=== PATIENT | female | born 1955 | race African-American/Black ===

== ENCOUNTER 2019-09-07 11:43 | IRF | payer BC, SELFPAY ==
--- NOTE | ~2019-09-07 | US_ITS ---
EXAMINATION: US venous doppler LE EXAM DATE: 09/10/2019 09:35 INDICATION: Right leg swelling. TECHNIQUE: Multiple grayscale, color flow and Doppler images of the right lower extremity deep venous system obtained and reviewed. There is no prior study for comparison. FINDINGS: RIGHT SIDE Common femoral: -------- Normal. Profunda femoral: ------- Normal. Femoral: Normal. Popliteal: Normal. Posterior tibial: --------- Normal. Peroneal: Paired, 1 thrombosed proximally. Gastrocnemius: Not visualized. Soleus: Not visualized. Greater saphenous: ----- Normal. Lesser saphenous: ------ Not visualized. IMPRESSION: 1. Positive for right peroneal DVT. I discussed positive DVT results with [facility] staff Ellie at 09/10/2019 09:38 MOTEL MANAGER. Reviewed, dictated and finalized at location B. L MANAGER IMPRESSION: 1. Positive for right peroneal DVT. I discussed positive DVT results with [facility] staff Ellie at 09/10/2019 09:38 MOTEL MANAGER .
[2019-09-07 11:42] VITALS: BP 150/72; PULSE 62; RESP 18; TEMP 36.6; O2SAT 99
--- NOTE | 2019-09-07 11:45 | ADMGEN ---
This patient, Kym Robb, was admitted to [facility] Room 219-02. Patient/family oriented to hospital policies and general routines including ID bracelet, bed and alarms, visiting hours, pain management, procedures, bathroom and other care routines, personal items, smoking policy, room service/diet, and visiting hours. Valuables list has been completed. Information on how to activate the Rapid Response Team has been discussed. Patient/Family are encouraged to report perceived risks to care and to ask questions if they do not understand what they are told or what they should do.
[2019-09-07] MEDS: NIFEdipine 10 MG CAPSULE 20 MG PO ×2 (13:03→20:26)
[2019-09-07 14:00] VITALS: BP 152/72; PULSE 80; RESP 20; TEMP 36.2; O2SAT 100
--- NOTE | 2019-09-07 14:44 | P.HPREH_ITS ---
H&P: HPI History of Present Illness Chief complaint: CVA Narrative: Kym Rbob is a 64 year old female [facility] Family History Family History Sibling Cerebrovascular accident Chronic obstructive pulmonary disease Hypertension Mother Cerebrovascular accident Diabetes mellitus Hypertension Sibling Chronic obstructive pulmonary disease Hypertension Social History Social History Alcohol intake: never Substance use: never Substance use type: does not use Spiritual care concerns: No Agree to blood products: Yes Meds Home Medications and Allergies Home Medications Medication Instructions Recorded Confirmed Type acetaminophen 650 mg PO Q6H PRN 09/07/19 09/07/19 History aspirin 81 mg PO DAILY 09/07/19 09/07/19 History atorvastatin 40 mg PO HS 09/07/19 09/07/19 History clopidogrel 75 mg PO DAILY 09/07/19 09/07/19 History hydrochlorothiazide 25 mg PO DAILY 09/07/19 09/07/19 History lisinopril 40 mg PO DAILY 09/07/19 09/07/19 History metoprolol succinate 100 mg PO DAILY 09/07/19 09/07/19 History nifedipine 20 mg PO Q8H 09/07/19 09/07/19 History polyethylene glycol 3350 17 g PO BID PRN 09/07/19 09/07/19 History Allergies Allergy/AdvReac Type Severity Reaction Status Date / Time No Known Allergies Allergy Verified 09/07/19 11:57 Vital Signs Vital Signs - 24 hr 09/07/19 11:42 09/07/19 14:00 Temperature 36.6 C 36.2 C L Pulse Rate 62 80 Respiratory Rate 18 20 Blood Pressure 150/72 H 152/72 H Pulse Oximetry 99 100
[2019-09-07 18:55] VITALS: BMI 38.7
[2019-09-07] MEDS: ATORVASTATIN 40 MG TABLET PO (20:26)
[2019-09-07 22:00] VITALS: BP 157/79; PULSE 58; RESP 18; TEMP 36.2; O2SAT 100
[2019-09-08 05:56] LABS: Basophils Percent Auto 0.4 % (0.2-1.2); Eosinophils Absolute Auto 0.3 K/mm3 (0-0.3); Eosinophils Percent Auto 4.5 % (0-4.4); Hematocrit 41.2 % (37.0-47.0); Hemoglobin 12.6 g/dL (12.0-15.0); Immature Granulocyte Absolute 0.02 K/mm3 (0.00-0.031); Immature Granulocyte Percent A 0.4 % (0-0.5); Lymphocytes Absolute Auto 1.69 K/mm3 (0.9-3.2); Lymphocytes Percent Auto 30.7 % (18.3-44.2); Mean Corpuscular HGB Conc 30.6 g/dl (32-36); Mean Corpuscular Hemoglobin 28.1 pg (26-34); Mean Corpuscular Volume 91.8 fl (80-100); Mean Platelet Volume 11.3 fl (7.4-10.4); Monocytes Absolute Auto 0.7 K/mm3 (0.1-0.6); Monocytes Percent Auto 12.5 % (2.6-8.5); Neutrophils Absolute Auto 2.8 K/mm3 (1.3-6.7); Neutrophils Percent Auto 51.5 % (45.5-73.1); Platelet Count Result 241 k/mm3 (150-375); Red Blood Count 4.49 M/mm3 (4.2-5.4); Red Cell Distribution Width 12.4 % (11.5-14.5); White Blood Count 5.5 K/mm3 (4.5-10.0)
[2019-09-08 06:00] VITALS: BP 157/66; PULSE 81; RESP 20; TEMP 36.2; O2SAT 98
[2019-09-08] MEDS: NIFEdipine 10 MG CAPSULE 20 MG PO ×3 (06:05→19:36)
[2019-09-08 06:10] LABS: Blood Urea Nitrogen 25 mg/dL (7-17); Calcium 9.6 mg/dL (8.4-10.2); Carbon Dioxide 26 mmol/L (22-30); Chloride 104 mmol/L (98-107); Estimated CRCL calculation 50 ml/min; Estimated Glomerular Filt Rate > 60; Glucose 100 mg/dL (65-105); Potassium 4.2 mmol/L (3.4-5.0); Sodium 141 mmol/L (137-145)
[2019-09-08] MEDS: lisinopriL 20 MG TABLET 40 MG PO (09:34)
[2019-09-08 09:35] VITALS: PULSE 68
[2019-09-08] MEDS: METOPROLOL SUCCINATE EXT REL 100 MG TABCR PO (09:35)
[2019-09-08] MEDS: ASPIRIN 81 MG CHEWABLE TABLET PO (09:35)
[2019-09-08] MEDS: hydroCHLOROthiazide 25 MG TABLET PO (09:35)
[2019-09-08] MEDS: CLOPIDOGREL BISULFATE 75 MG TABLET PO (09:35)
[2019-09-08 14:00] VITALS: BP 153/65; PULSE 58; RESP 16; TEMP 37.1; O2SAT 100
[2019-09-08] MEDS: ATORVASTATIN 40 MG TABLET PO (19:36)
[2019-09-08 21:57] VITALS: BP 148/65; PULSE 54; RESP 20; TEMP 36.3; O2SAT 100
[2019-09-09] MEDS: NIFEdipine 10 MG CAPSULE 20 MG PO ×3 (05:43→21:05)
[2019-09-09 06:00] VITALS: BP 142/66; PULSE 81; RESP 20; TEMP 36.9; O2SAT 98
[2019-09-09] MEDS: ASPIRIN 81 MG CHEWABLE TABLET PO (08:57)
[2019-09-09 08:58] VITALS: PULSE 81
[2019-09-09] MEDS: CLOPIDOGREL BISULFATE 75 MG TABLET PO (08:58)
[2019-09-09] MEDS: hydroCHLOROthiazide 25 MG TABLET PO (08:58)
[2019-09-09] MEDS: lisinopriL 20 MG TABLET 40 MG PO (08:58)
[2019-09-09] MEDS: METOPROLOL SUCCINATE EXT REL 100 MG TABCR PO (08:58)
[2019-09-09 14:00] VITALS: BP 140/61; PULSE 62; RESP 16; TEMP 36.8; O2SAT 99
[2019-09-09] MEDS: ATORVASTATIN 40 MG TABLET PO (21:06)
[2019-09-09 21:18] VITALS: BP 173/64; PULSE 62; RESP 20; TEMP 36.4; O2SAT 99
[2019-09-10 06:00] VITALS: BP 143/66; PULSE 68; RESP 16; TEMP 36.4; O2SAT 98
[2019-09-10] MEDS: NIFEdipine 10 MG CAPSULE 20 MG PO ×3 (06:12→21:03)
--- NOTE | 2019-09-10 06:20 | REHAB_ITS ---
DATE OF SERVICE: 09/07/2019 This 64 years old has been admitted to the hospital acute rehab with the primary rehab impairment category of 01/stroke and the etiological diagnosis of acute infarct involving the medial left frontal and parietal lobes. The patient was examined [id number] on 09/07/2019 at 2:00 p.m. HISTORY AND PHYSICAL EXAM: This 64 years old right-handed female with past medical history of hypertension, presented to [facility] on 09/03/2019, subsequent to fall the day before, though she was unable to remember falling; however, she denied loss of consciousness, she reported decreased sensation in the right lower extremity since the fall. She also reported not taking her home antihypertensive medication for the last couple of months. Initial CT scan of the head revealed no acute intracranial bleed. Chest x-ray was negative for any acute pulmonary process. Bilateral hip and pelvic x-rays were negative for bony injuries. Blood pressure on presentation was in 270 systolic. She was given IV labetalol and hydralazine and her home medications were restarted. Neurology service was consulted. An MRI of the brain and carotid duplex studies were ordered. Brain MRI demonstrated multiple areas of acute infarct in the medial left frontal and parietal lobes including the primary motor cortex and tiny foci of the old hemorrhages. Carotid duplex scan revealed [id number] plaque and no ulceration. Physical examination revealed to have right-sided weakness, decreased gross motor control, decreased safety awareness, and impaired balance. She was started on atorvastatin, aspirin, and Plavix. Her home blood pressure medication included lisinopril, hydrochlorothiazide, and metoprolol. They were continued and adjusted and a new medication that is Procardia was added. She was discharged to rehab on subcutaneous heparin for DVT prophylaxis. Therapy was initiated at the acute care facility and the patient was transferred to us from [facility] on 09/07/2019. The patient has had no major surgery in the last 100 days prior to the admission. She has had falls in the last year. She has had no fall with injury in the last year. PAST MEDICAL HISTORY: Hypertension. PAST SURGICAL HISTORY: None. SOCIAL HISTORY: The patient lives with her in a one-level home with 4 steps to enter. No hand rails. She was completely independent prior and working full-time as a banquet chef. She was very busy and active prior. Her is employed as well. She had a fall as the reason for this admission. She has had no major surgery in the past 100 days. FAMILY HISTORY: Mother had stroke, hypertension, and sister also has hypertension. PRIOR LEVEL OF FUNCTION: The patient has been independent in eating, oral care, toileting, bathing and shower, upper body dressing, lower body care, footwear, and rolling left and right, sit to lying, lying to sitting, sit to stand, bed to chair transfer, toilet transfer, the patient was previously ambulating independently with no device, she was able to complete 4 stairs independently. CURRENT LEVEL OF FUNCTION: Eating is independent. Oral care is partial moderate assistance. Toileting hygiene is partial moderate assistance. Shower bathing is partial moderate assistance. Upper body supervision or touching assistance. Lower body is partial moderate assistance. Footwear is partial moderate assistance. Rolling left and right is setup or cleanup assistance. Sit to lying is setup or cleanup assistance. Lying to sitting is setup or cleanup assistance. Sit to stand partial moderate assistance. Nbr-qt-[id number] transfer partial moderate assistance. Toilet transfer, partial moderate assistance. The patient has walked 88 feet with partial moderate assistance. Wheelch
[2019-09-10] MEDS: CLOPIDOGREL BISULFATE 75 MG TABLET PO (08:46)
[2019-09-10] MEDS: hydroCHLOROthiazide 25 MG TABLET PO (08:46)
[2019-09-10] MEDS: ASPIRIN 81 MG CHEWABLE TABLET PO (08:46)
[2019-09-10] MEDS: lisinopriL 20 MG TABLET 40 MG PO (08:46)
[2019-09-10 08:47] VITALS: PULSE 68
[2019-09-10] MEDS: METOPROLOL SUCCINATE EXT REL 100 MG TABCR PO (08:47)
--- NOTE | 2019-09-10 10:01 | RPD ---
INDIVIDUALIZED PLAN OF CARE FOR Kym Robb Brief Synthesis of Pre-Admission Screen, Post-Admission Evaluation and Therapy Evaluations: The patient presents to rehab with acute infarct medial left frontal/parietal lobe. Comorbidities include hypertensive emergency, right-sided weakness, hyperlipidemia, s/p ground level fall, gait instability. The patient requires physician services for neurology services, medical oversight, and coordination of care. The patient needs physician monitoring and treatment of uncontrolled hypertension, hypotension, monitoring for adverse reactions to new medications, and monitoring for infection. The patient requires nursing services for frequent neuro checks, anticoagulation therapy, medication management and education, pressure relief and skin care management, monitoring of labs, and fall/safety precautions. Deficits include:ADLs, Balance, Endurance, Mobility, ROM, Safety, Strength, Transfers Rubber Washer/Case Management for: Discharge Planning and Patient/Family Counseling Physical Therapy: 5 days per week for 90 minutes. Treatments may include: Therapeutic Exercise, Gait Training, Neuromuscular Re-education, Transfer Training, Community Reintegration, Bed Mobility, Patient/Family Education, Wheelchair Mobility Group Therapy/Concurrent Therapy Rationales: -Improve attention span during functional activities in a distracted environment. -Enhance problem solving and/or adequate judgment skills during functional activities in a distracted environment. -Promote increased safety awareness in a distracted environment to reduce fall risk with functional tasks, transfers, and ambulation to allow a more safe, self-sufficient return to the home environment. -Improve dynamic balance skills to promote safety and independence with functional activities in a distracted environment for maximum gain. Occupational Therapy: 5 days per week for 90 minutes. Treatments may include: Therapeutic Exercise, Therapeutic Activity, Cognitive Training, Self-Care Transfer Training, Community Reintegration, Home Management, Patient/Family Education, Wheelchair Mobility Training, Energy Conservation Training Group Therapy/Concurrent Therapy Rationales: -Allow therapist to observe and teach generalization and carry-over of skills learned in individual therapy. -Enhance problem solving and sequencing skills during therapeutic activities in a distracted environment. -Promote increased safety awareness in a realistic setting to reduce fall risk with functional tasks due to visual and verbal distractions. -Increase functional level with ADLs, ADL transfers and use of adaptive equipment through therapeutic activities with others while promoting safety to allow a more safe, self-sufficient return home. Medical Prognosis: Good Anticipated Length of Stay: 10 days Rehab Goals: Eating Goal: 06-Independent Oral Hygiene Goal: 06-Independent Toileting Hygiene Goal: 06-Independent Shower/Bathe Self Goal: 06-Independent Upper Body Dressing Goal: 06-Independent Lower Body Dressing Goal: 06-Independent Putting On/Taking Off Footwear Goal: 06-Independent Rolling Left and Right Goal: 06-Independent Sit to Lying Goal: 06-Independent Lying to Sitting on Side of Bed Goal: 06-Independent Sit to Stand Goal: 06-Independent Chair/Tgd-in-Xazoi Transfer Goal: 06-Independent Toilet Transfer Goal: 06-Independent Car Transfer Goal: 06-Independent Walk 10' Goal: 06-Independent Walk 50' with Two Turns Goal: 06-Independent Walk 150' Goal: 06-Independent Walk 10' on Uneven Surface Goal: 06-Independent 1 Step (Curb) Goal: 06-Independent 4 Steps Goal: 06-Independent 12 Steps Goal Score: 06-Independent Picking Up Object Goal: 06-Independent Wheel 50' with Two Turns Score: 09-Not Applicable Wheel 150' Goal: 09-Not Applicable Anticipated discharge destination: Home
--- NOTE | 2019-09-10 11:32 | WPDNEURORHBP ---
Subjective Date/time seen: 09/10/19 11:32 Review of Systems Review of Systems: All systems reviewed & are unremarkable except as noted in HPI and below Functional Status Ambulation Ability Ability to Ambulate 10 Feet: Contact Guard Ability to Ambulate 50 Feet With 2 Turns: Contact Guard Ability to Ambulate 150 Feet: Contact Guard Ambulation Assistive Devices: Cane Transfers Ability Ability to Transfer In/Out of Chair: Standby Assistance Exam Const: General: no acute distress and well developed Nutritional Appearance: average body habitus and well nourished Orientation/consciousness: oriented to person and patient oriented x3 Limitations: no limitations Eyes: General: appearance normal, both eyes and all related structures Resp: Effort & Inspection: normal respiratory effort and able to speak in complete sentences Auscultation: clear to auscultation bilaterally Cardio: Rate: regular rate Rhythm: regular rhythm GI: Auscultation: normal bowel sounds Skin: General skin exam: no rashes or lesions noted Neuro: General: patient oriented x3 and moves all extremities Cranial nerves: Yes Equal, round and reactive pupils present, Yes Bilaterally intact EOM present, Yes Nystagmus not present, Yes Normal facial strength present, Yes Midline tongue present, Yes Normal gag reflex present and Yes Ability to bilaterally elevate shoulders present Cognition (Neuro): normal cognition Gait exam (Neuro): Unable to assess gait Extrem: General: no pedal edema (right lower extremity swoolen) Psych: Appearance: grossly normal Objective Data Vital Signs Vital Signs: Vital Signs - 24 hr 09/09/19 14:00 09/09/19 21:18 09/10/19 06:00 Temperature 36.8 C 36.4 C 36.4 C L Pulse Rate 62 62 68 Respiratory Rate 16 20 16 Blood Pressure 140/61 173/64 H 143/66 H Pulse Oximetry 99 99 98 09/10/19 08:47 Temperature Pulse Rate 68 Respiratory Rate Blood Pressure Pulse Oximetry Intake/Output Intake/Output: Intake & Output 09/07/19 09/08/19 09/09/19 09/10/19 23:59 23:59 23:59 23:59 Intake Total 240 1200 1080 300 Balance 240 1200 1080 300 Meds/Results Medications: Active Medications Generic Name Dose Route Start Last Admin Trade Name Freq PRN Reason Stop Dose Admin Acetaminophen 650 mg 09/07/19 11:55 Tylenol Tablet PO Q6H PRN Pain Aspirin 81 mg 09/08/19 09:00 09/10/19 08:46 Aspirin Chewable PO 10/05/19 09:01 81 mg DAILY EDU Administration Atorvastatin Calcium 40 mg 09/07/19 21:00 09/09/19 21:06 Lipitor PO 40 mg HS EDU Administration Benzocaine 1 lozenge 09/08/19 00:49 Chloraseptic Lozenge PO PRN PRN Sore Throat Protocol Clopidogrel Bisulfate 75 mg 09/08/19 09:00 09/10/19 08:46 Plavix PO 75 mg DAILY EDU Administration Heparin Sodium (Porcine) 5,000 units 09/10/19 10:30 Heparin Sodium SUB-Q Q8HR EDU Hydrochlorothiazide 25 mg 09/08/19 09:00 09/10/19 08:46 Hydrochlorothiazide PO 25 mg DAILY EDU Administration Lisinopril 40 mg 09/08/19 09:00 09/10/19 08:46 Prinivil PO 40 mg DAILY EDU Administration Metoprolol Succinate 100 mg 09/08/19 09:00 09/10/19 08:47 Toprol Xl PO 100 mg DAILY EDU Administration Nifedipine 20 mg 09/07/19 14:00 09/10/19 06:12 Procardia PO 20 mg Q8HR EDU Administration Polyethylene Glycol 17 gm 09/07/19 11:55 Miralax PO BID PRN Constipation Radiology Results: ITS Impressions Venous Doppler Study 09/10/19 09:36 IMPRESSION: 1. Positive for right peroneal DVT. I discussed positive DVT results with [facility] staff Ellie at 09/10/2019 09:38 VARITYPIST. Progress Note: A&P Assessment and Plan (1) Stroke: Code(s): I63.9 - Cerebral infarction, unspecified Status: Acute (2) Hypotension: Code(s): I95.9 - Hypotension, unspecified Status: Acute (3) DVT (deep venous thrombosis): Code(s): I82.409 - Acute embolis
[2019-09-10] MEDS: HEPARIN SODIUM 5,000 UNITS/ML VIAL 5000 UNITS SUB-Q ×3 (11:58→21:09)
[2019-09-10 13:38] VITALS: BMI 38.7
[2019-09-10 14:00] VITALS: BP 173/65; PULSE 70; RESP 18; TEMP 36.5; O2SAT 99
--- NOTE | 2019-09-10 14:51 | PCNSR ---
On 09/10/19, the student, Ines Aceves, provided care and completed [facility] documentation on this patient. I have reviewed the student's documentation and agree with the findings.
[2019-09-10] MEDS: ATORVASTATIN 40 MG TABLET PO (21:03)
[2019-09-10 22:00] VITALS: BP 182/71; PULSE 66; RESP 20; TEMP 36.5; O2SAT 100
[2019-09-11] VITALS (7 sets, daily range): BP systolic 134–184; BP diastolic 54–77; PULSE 60–76; RESP 18–20; TEMP 36.2–36.5; O2SAT 98–100
[2019-09-11] MEDS: NIFEdipine 10 MG CAPSULE 20 MG PO ×3 (08:15→20:49)
[2019-09-11] MEDS: HEPARIN SODIUM 5,000 UNITS/ML VIAL 5000 UNITS SUB-Q ×3 (08:15→20:50)
[2019-09-11] MEDS: hydroCHLOROthiazide 25 MG TABLET PO (08:18)
[2019-09-11] MEDS: METOPROLOL SUCCINATE EXT REL 100 MG TABCR PO (08:18)
[2019-09-11] MEDS: ASPIRIN 81 MG CHEWABLE TABLET PO (08:18)
[2019-09-11] MEDS: CLOPIDOGREL BISULFATE 75 MG TABLET PO (08:18)
[2019-09-11] MEDS: lisinopriL 20 MG TABLET 40 MG PO (08:18)
--- NOTE | 2019-09-11 13:15 | WPDNEURORHBP ---
Subjective Date/time seen: 09/11/19 13:15 Interval history: this is a 64-year-old woman was on the acute rehab after having had a left hemispheric stroke with right-sided weakness with the sparing of the speech and language function she is doing well in the rehab program and does not have any specific complaints particularly there is no headache nausea vomiting chest pain shortness of breath the therapist mentioned that the patient may need an AFO because of the unstable of right leg which is much more involved from the stroke than the arm itself in fact the arm is with significantly much improved almost back to normal No headache nausea vomiting leg pain chest pain shortness of breath fever chills abdominal pain diarrhea or vomiting Review of Systems Review of Systems: All systems reviewed & are unremarkable except as noted in HPI and below Functional Status Ambulation Ability Ability to Ambulate 10 Feet: Contact Guard Ability to Ambulate 50 Feet With 2 Turns: Contact Guard Ability to Ambulate 150 Feet: Contact Guard Ambulation Assistive Devices: Cane Transfers Ability Ability to Transfer In/Out of Chair: Standby Assistance Exam Const: General: comfortable and no acute distress HENMT: General nose exam: Normal nares present Mouth: Yes moist mucous membranes Eyes: General: appearance normal, both eyes and all related structures Neck: Neck: supple and no JVD Resp: Effort & Inspection: normal respiratory effort Auscultation: clear to auscultation bilaterally Cardio: Rate: regular rate Rhythm: regular rhythm GI: GI Palp: Yes Soft to palpation Auscultation: normal bowel sounds Skin: General skin exam: normal color and no rashes or lesions noted Neuro: Other: patient is awake and alert will oriented in time place and person speech and language functions are normal cranial examination is fairly decent she does have a right-sided weakness where the right leg is much more involved than the right upper extremity overall picture is much improved Extrem: General: normal to inspection Objective Data Vital Signs Vital Signs: Vital Signs - 24 hr 09/10/19 14:00 09/10/19 22:00 09/11/19 06:00 Temperature 36.5 C 36.5 C 36.5 C Pulse Rate 70 66 76 Respiratory Rate 18 20 20 Blood Pressure 173/65 H 182/71 H 146/54 H Pulse Oximetry 99 100 98 09/11/19 08:18 09/11/19 08:21 09/11/19 10:41 Temperature Pulse Rate 68 68 60 Respiratory Rate Blood Pressure 184/71 H 142/70 H Pulse Oximetry Intake/Output Intake/Output: Intake & Output 09/08/19 09/09/19 09/10/19 09/11/19 23:59 23:59 23:59 23:59 Intake Total 1200 1080 860 240 Balance 1200 1080 860 240 Meds/Results Medications: Active Medications Generic Name Dose Route Start Last Admin Trade Name Freq PRN Reason Stop Dose Admin Acetaminophen 650 mg 09/07/19 11:55 Tylenol Tablet PO Q6H PRN Pain Aspirin 81 mg 09/08/19 09:00 09/11/19 08:18 Aspirin Chewable PO 10/05/19 09:01 81 mg DAILY EDU Administration Atorvastatin Calcium 40 mg 09/07/19 21:00 09/10/19 21:03 Lipitor PO 40 mg HS EDU Administration Benzocaine 1 lozenge 09/08/19 00:49 Chloraseptic Lozenge PO PRN PRN Sore Throat Protocol Clopidogrel Bisulfate 75 mg 09/08/19 09:00 09/11/19 08:18 Plavix PO 75 mg DAILY EDU Administration Heparin Sodium (Porcine) 5,000 units 09/10/19 10:30 09/11/19 08:15 Heparin Sodium SUB-Q 5,000 units Q8HR EDU Administration Hydrochlorothiazide 25 mg 09/08/19 09:00 09/11/19 08:18 Hydrochlorothiazide PO 25 mg DAILY EDU Administration Lisinopril 40 mg 09/08/19 09:00 09/11/19 08:18 Prinivil PO 40 mg DAILY EDU Administration Metoprolol Succinate 100 mg 09/08/19 09:00 09/11/19 08:18 Toprol Xl PO 100 mg DAILY EDU Administration Nifedipine 20 mg 09/07/19 14:00 09/11/19 08:15 Procardia PO 20 mg Q8HR EDU Administration Polyethylene Glycol 17 gm
[2019-09-11] MEDS: ATORVASTATIN 40 MG TABLET PO (20:50)
[2019-09-12] MEDS: HEPARIN SODIUM 5,000 UNITS/ML VIAL 5000 UNITS SUB-Q ×2 (05:49→14:09)
[2019-09-12] MEDS: NIFEdipine 10 MG CAPSULE 20 MG PO ×3 (05:50→20:06)
[2019-09-12 06:00] VITALS: BP 138/66; PULSE 76; RESP 20; TEMP 36.4; O2SAT 100
[2019-09-12] MEDS: ASPIRIN 81 MG CHEWABLE TABLET PO (08:31)
[2019-09-12] MEDS: hydroCHLOROthiazide 25 MG TABLET PO (08:31)
[2019-09-12] MEDS: CLOPIDOGREL BISULFATE 75 MG TABLET PO (08:31)
[2019-09-12 08:32] VITALS: PULSE 76
[2019-09-12] MEDS: lisinopriL 20 MG TABLET 40 MG PO (08:32)
[2019-09-12] MEDS: METOPROLOL SUCCINATE EXT REL 100 MG TABCR PO (08:32)
--- NOTE | 2019-09-12 09:51 | PCPTNOTE ---
Kym Robb was evaluated for a straight cane on 09/12/2019 by this physical therapist server assistant. The straight cane will resolve patient's mobility limitations and will be used for ADL's within the home. The patient can safely use the straight cane. ?The straight cane will resolve the patient?s mobility deficits, including decreased balance and strength of right lower extremity.
[2019-09-12 14:00] VITALS: BP 134/61; PULSE 66; RESP 18; TEMP 36.5; O2SAT 100
--- NOTE | 2019-09-12 14:25 | WPDNEURORHBP ---
Subjective Date/time seen: 09/12/19 14:25 Interval history: this 64-year-old old woman on the acute rehab after suffering from left-sided stroke which has left her with right-sided weakness and she is going to need AFO to stabilize her gait she is improving overall in therapy does not have any new neurological complaints however she does have evidence of DVT and this examiner is in process to get approval for Eliquis for treatment of DVT in the meantime she is on heparin subcu and aspirin and Plavix no headaches nausea vomiting chest pain shortness of breath fever chills sore throat Review of Systems Review of Systems: All systems reviewed & are unremarkable except as noted in HPI and below Functional Status Ambulation Ability Ability to Ambulate 10 Feet: Independent Ability to Ambulate 50 Feet With 2 Turns: Independent Ability to Ambulate 150 Feet: Independent Ambulation Assistive Devices: Cane Transfers Ability Ability to Transfer In/Out of Chair: Standby Assistance Exam Const: General: comfortable and no acute distress HENMT: General nose exam: Normal nares present Mouth: Yes moist mucous membranes Eyes: General: appearance normal, both eyes and all related structures Neck: Neck: supple and no JVD Resp: Effort & Inspection: normal respiratory effort Auscultation: clear to auscultation bilaterally Cardio: Rate: regular rate Rhythm: regular rhythm GI: GI Palp: Yes Soft to palpation Auscultation: normal bowel sounds Skin: General skin exam: normal color and no rashes or lesions noted Neuro: Other: the patient is improving right-sided hemiparesis has a decent Mental State examination decent cranial examination and speech and language functions are much better than when she came Extrem: General: normal to inspection Psych: Mental Status: mental status grossly normal Objective Data Vital Signs Vital Signs: Vital Signs - 24 hr 09/11/19 19:58 09/11/19 22:00 09/12/19 06:00 Temperature 36.5 C 36.4 C Pulse Rate 65 69 76 Respiratory Rate 18 18 20 Blood Pressure 183/77 H 138/66 Pulse Oximetry 100 99 100 09/12/19 08:32 Temperature Pulse Rate 76 Respiratory Rate Blood Pressure Pulse Oximetry Intake/Output Intake/Output: Intake & Output 09/09/19 09/10/19 09/11/19 09/12/19 23:59 23:59 23:59 23:59 Intake Total 1080 860 480 480 Balance 1080 860 480 480 Meds/Results Medications: Active Medications Generic Name Dose Route Start Last Admin Trade Name Freq PRN Reason Stop Dose Admin Acetaminophen 650 mg 09/07/19 11:55 Tylenol Tablet PO Q6H PRN Pain Aspirin 81 mg 09/08/19 09:00 09/12/19 08:31 Aspirin Chewable PO 10/05/19 09:01 81 mg DAILY EDU Administration Atorvastatin Calcium 40 mg 09/07/19 21:00 09/11/19 20:50 Lipitor PO 40 mg HS EDU Administration Benzocaine 1 lozenge 09/08/19 00:49 Chloraseptic Lozenge PO PRN PRN Sore Throat Protocol Clopidogrel Bisulfate 75 mg 09/08/19 09:00 09/12/19 08:31 Plavix PO 75 mg DAILY EDU Administration Heparin Sodium (Porcine) 5,000 units 09/10/19 10:30 09/12/19 14:09 Heparin Sodium SUB-Q 5,000 units Q8HR EDU Administration Hydrochlorothiazide 25 mg 09/08/19 09:00 09/12/19 08:31 Hydrochlorothiazide PO 25 mg DAILY EDU Administration Lisinopril 40 mg 09/08/19 09:00 09/12/19 08:32 Prinivil PO 40 mg DAILY EDU Administration Metoprolol Succinate 100 mg 09/08/19 09:00 09/12/19 08:32 Toprol Xl PO 100 mg DAILY EDU Administration Nifedipine 20 mg 09/07/19 14:00 09/12/19 14:09 Procardia PO 20 mg Q8HR EDU Administration Polyethylene Glycol 17 gm 09/07/19 11:55 Miralax PO BID PRN Constipation Radiology Results: ITS Impressions Venous Doppler Study 09/10/19 09:36 IMPRESSION: 1. Positive for right peroneal DVT. I discussed positive DVT results with [facility] staff Ellie at 09/10/2019 09:38 CAR BODY MECHANIC.
[2019-09-12] MEDS: APIXABAN 5 MG TABLET 10 MG PO (18:00)
[2019-09-12] MEDS: ATORVASTATIN 40 MG TABLET PO (20:07)
[2019-09-12 21:29] VITALS: BP 179/91; PULSE 64; RESP 20; TEMP 36.2; O2SAT 100
[2019-09-13 06:00] VITALS: BP 182/74; PULSE 58; RESP 16; TEMP 36.5; O2SAT 100
[2019-09-13] MEDS: NIFEdipine 10 MG CAPSULE 20 MG PO ×3 (06:02→19:53)
[2019-09-13 08:00] VITALS: PULSE 62; RESP 16; O2SAT 100
[2019-09-13] MEDS: lisinopriL 20 MG TABLET 40 MG PO (08:35)
[2019-09-13] MEDS: hydroCHLOROthiazide 25 MG TABLET PO (08:35)
[2019-09-13 08:36] VITALS: PULSE 62
[2019-09-13] MEDS: ASPIRIN 81 MG CHEWABLE TABLET PO (08:36)
[2019-09-13] MEDS: APIXABAN 5 MG TABLET 10 MG PO ×2 (08:36→17:46)
[2019-09-13] MEDS: METOPROLOL SUCCINATE EXT REL 100 MG TABCR PO (08:36)
--- NOTE | 2019-09-13 11:14 | WPDNEURORHBP ---
Subjective Date/time seen: September 13, 2019 at 9:00 a.m. Interval history: this 64-year-old woman with a left-sided stroke with right hemiparesis improving quite a bit and happy with the care denies any headache change in the mental status chest pain shortness of breath nausea vomiting fevers chills sore throat abdominal pain Review of Systems Review of Systems: All systems reviewed & are unremarkable except as noted in HPI and below Functional Status Ambulation Ability Ability to Ambulate 10 Feet: Standby Assistance Ability to Ambulate 50 Feet With 2 Turns: Standby Assistance Ability to Ambulate 150 Feet: Standby Assistance Ambulation Assistive Devices: Cane Transfers Ability Ability to Transfer In/Out of Chair: Independent Exam Const: General: comfortable and no acute distress HENMT: General nose exam: Normal nares present Mouth: Yes moist mucous membranes Eyes: General: appearance normal, both eyes and all related structures Neck: Neck: supple and no JVD Resp: Effort & Inspection: normal respiratory effort Auscultation: clear to auscultation bilaterally Cardio: Rate: regular rate Skin: General skin exam: normal color and no rashes or lesions noted Neuro: Other: patient is awake and alert will oriented time place and person is speech language functions are normal right-sided hemiparesis improving right foot drop will need and AFO discharge planning is in progress she is happy with the care Extrem: General: normal to inspection Psych: Mental Status: mental status grossly normal Objective Data Vital Signs Vital Signs: Vital Signs - 24 hr 09/13/19 14:00 09/13/19 22:00 09/14/19 06:00 Temperature 36.2 C L 36.3 C L 36.5 C Pulse Rate 74 61 59 L Respiratory Rate 20 20 20 Blood Pressure 168/76 H 169/64 H 150/62 H Pulse Oximetry 96 100 98 Intake/Output Intake/Output: Intake & Output 09/11/19 09/12/19 09/13/19 09/14/19 23:59 23:59 23:59 23:59 Intake Total 480 1320 720 480 Balance 480 1320 720 480 Meds/Results Medications: Active Medications Generic Name Dose Route Start Last Admin Trade Name Freq PRN Reason Stop Dose Admin Acetaminophen 650 mg 09/07/19 11:55 Tylenol Tablet PO Q6H PRN Pain Apixaban 10 mg 09/12/19 17:00 09/14/19 08:34 Eliquis PO 09/17/19 09:01 10 mg BID EDU Administration Apixaban 5 mg 09/17/19 17:00 Eliquis PO 10/02/19 09:01 BID EDU Aspirin 81 mg 09/08/19 09:00 09/14/19 08:34 Aspirin Chewable PO 10/05/19 09:01 81 mg DAILY EDU Administration Atorvastatin Calcium 40 mg 09/07/19 21:00 09/13/19 19:54 Lipitor PO 40 mg HS EDU Administration Benzocaine 1 lozenge 09/08/19 00:49 Chloraseptic Lozenge PO PRN PRN Sore Throat Protocol Hydrochlorothiazide 25 mg 09/08/19 09:00 09/14/19 08:34 Hydrochlorothiazide PO 25 mg DAILY EDU Administration Lisinopril 40 mg 09/08/19 09:00 09/14/19 08:34 Prinivil PO 40 mg DAILY EDU Administration Metoprolol Succinate 100 mg 09/08/19 09:00 09/14/19 08:34 Toprol Xl PO 100 mg DAILY EDU Administration Nifedipine 20 mg 09/07/19 14:00 09/14/19 06:11 Procardia PO 20 mg Q8HR EDU Administration Polyethylene Glycol 17 gm 09/07/19 11:55 Miralax PO BID PRN Constipation Radiology Results: ITS Impressions Venous Doppler Study 09/10/19 09:36 IMPRESSION: 1. Positive for right peroneal DVT. 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 Progress Note: A&P Assessment and Plan (1) Hypertension: Code(s): I10 - Essential (primary) hypertension Status: Acute (2) DVT (deep venous thrombosis): Code(s): I82.409 - Acute embolism and thrombosis of unspecified deep veins of unspecified lower extremity Status: Acute (3) Hypotension: Code(s): I95.9 - Hypotension, unspecified Status: Acute (4) Stroke: Code(s): I63.9
[2019-09-13 14:00] VITALS: BP 168/76; PULSE 74; RESP 20; TEMP 36.2; O2SAT 96
[2019-09-13] MEDS: ATORVASTATIN 40 MG TABLET PO (19:54)
[2019-09-13 22:00] VITALS: BP 169/64; PULSE 61; RESP 20; TEMP 36.3; O2SAT 100
[2019-09-14 06:00] VITALS: BP 150/62; PULSE 59; RESP 20; TEMP 36.5; O2SAT 98
[2019-09-14] MEDS: NIFEdipine 10 MG CAPSULE 20 MG PO ×3 (06:11→20:18)
[2019-09-14] MEDS: ASPIRIN 81 MG CHEWABLE TABLET PO (08:34)
[2019-09-14] MEDS: lisinopriL 20 MG TABLET 40 MG PO (08:34)
[2019-09-14] MEDS: hydroCHLOROthiazide 25 MG TABLET PO (08:34)
[2019-09-14] MEDS: METOPROLOL SUCCINATE EXT REL 100 MG TABCR PO (08:34)
[2019-09-14] MEDS: APIXABAN 5 MG TABLET 10 MG PO ×2 (08:34→17:45)
--- NOTE | 2019-09-14 12:14 | PCDIET ---
Nutrition Follow-Up Complete: Obesity Class II related to excessive energy intake as evidenced by BMI of 38.7. Pt will eat 75% of all meals Goal met. pt eating average of 97% of meals. Nutrition recommendation: Recommend continuation of Heart Healthy diet in order to provide adequate nutrition and promote a healthy diet prost-discharge. Last recorded weight is 96 kg. Bowel Motility: +BM 09/12 Labs Reviewed:Last labs recorded from 09/08 - Na(141), K(4.2), BUN(25), Cr(1.10) Meds Noted:Lipitor, plavix, Prinivil, Eliquis, Toprol XL Additional Notes: Pt has no complaints of N/V or abdominal pain. States appetite is great. Will follow up in 7 days.
--- NOTE | 2019-09-14 12:37 | WPDNEURORHBP ---
Subjective Date/time seen: 09/14/19 12:37 Interval history: this 64-year-old Afro-[place]ian woman is here after suffering from left frontal and the parietal lobes infarction with right-sided hemiparesis and clearly not a whole lot is speech defect she developed a DVT of the right lower extremity for which she is on a Eliquis and needs to follow-up with the primary care physician for the same with the near future patient denies any headache double vision blurred vision chest pain shortness of breath neck pain diarrhea abdominal pain and no trouble urination Review of Systems Review of Systems: All systems reviewed & are unremarkable except as noted in HPI and below Functional Status Ambulation Ability Ability to Ambulate 10 Feet: Standby Assistance Ability to Ambulate 50 Feet With 2 Turns: Standby Assistance Ability to Ambulate 150 Feet: Standby Assistance Ambulation Assistive Devices: Cane Transfers Ability Ability to Transfer In/Out of Chair: Independent Exam Const: General: comfortable and no acute distress HENMT: General nose exam: Normal nares present Mouth: Yes moist mucous membranes Eyes: General: appearance normal, both eyes and all related structures Neck: Neck: supple and no JVD Resp: Effort & Inspection: normal respiratory effort Auscultation: clear to auscultation bilaterally Cardio: Rate: regular rate Rhythm: regular rhythm GI: GI Palp: Yes Soft to palpation Auscultation: normal bowel sounds Skin: General skin exam: normal color and no rashes or lesions noted Neuro: Other: patient is awake and alert well oriented time place person is speech and language functions are normal cranial exam is normal right-sided hemiparesis has significantly improved however she needs the AFO which is in process of being liver to her prior to her discharge tomorrow Extrem: General: normal to inspection Psych: Mental Status: mental status grossly normal Objective Data Vital Signs Vital Signs: Vital Signs - 24 hr 09/13/19 14:00 09/13/19 22:00 09/14/19 06:00 Temperature 36.2 C L 36.3 C L 36.5 C Pulse Rate 74 61 59 L Respiratory Rate 20 20 20 Blood Pressure 168/76 H 169/64 H 150/62 H Pulse Oximetry 96 100 98 Intake/Output Intake/Output: Intake & Output 09/11/19 09/12/19 09/13/19 09/14/19 23:59 23:59 23:59 23:59 Intake Total 480 1320 720 480 Balance 480 1320 720 480 Meds/Results Medications: Active Medications Generic Name Dose Route Start Last Admin Trade Name Freq PRN Reason Stop Dose Admin Acetaminophen 650 mg 09/07/19 11:55 Tylenol Tablet PO Q6H PRN Pain Apixaban 10 mg 09/12/19 17:00 09/14/19 08:34 Eliquis PO 09/17/19 09:01 10 mg BID EDU Administration Apixaban 5 mg 09/17/19 17:00 Eliquis PO 10/02/19 09:01 BID EDU Aspirin 81 mg 09/08/19 09:00 09/14/19 08:34 Aspirin Chewable PO 10/05/19 09:01 81 mg DAILY EDU Administration Atorvastatin Calcium 40 mg 09/07/19 21:00 09/13/19 19:54 Lipitor PO 40 mg HS EDU Administration Benzocaine 1 lozenge 09/08/19 00:49 Chloraseptic Lozenge PO PRN PRN Sore Throat Protocol Hydrochlorothiazide 25 mg 09/08/19 09:00 09/14/19 08:34 Hydrochlorothiazide PO 25 mg DAILY EDU Administration Lisinopril 40 mg 09/08/19 09:00 09/14/19 08:34 Prinivil PO 40 mg DAILY EDU Administration Metoprolol Succinate 100 mg 09/08/19 09:00 09/14/19 08:34 Toprol Xl PO 100 mg DAILY EDU Administration Nifedipine 20 mg 09/07/19 14:00 09/14/19 06:11 Procardia PO 20 mg Q8HR EDU Administration Polyethylene Glycol 17 gm 09/07/19 11:55 Miralax PO BID PRN Constipation Radiology Results: ITS Impressions Venous Doppler Study 09/10/19 09:36 IMPRESSION: 1. Positive for right peroneal DVT. 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 Progress Note: A&P Assessment and Plan (1) Hypertensio
[2019-09-14 14:00] VITALS: BP 154/58; PULSE 58; RESP 18; TEMP 36.9; O2SAT 100
--- NOTE | 2019-09-14 14:03 | PCNSR ---
On 09/14/19, the student, Ines Aceves, provided care and completed [facility] documentation on this patient. I have reviewed the student's documentation and agree with the findings.
[2019-09-14] MEDS: ATORVASTATIN 40 MG TABLET PO (20:17)
[2019-09-14 21:31] VITALS: BP 169/66; PULSE 58; RESP 20; TEMP 36.4; O2SAT 99
[2019-09-15 05:04] LABS: Basophils Percent Auto 0.7 % (0.2-1.2); Eosinophils Absolute Auto 0.2 K/mm3 (0-0.3); Eosinophils Percent Auto 3.9 % (0-4.4); Hematocrit 37.5 % (37.0-47.0); Hemoglobin 11.9 g/dL (12.0-15.0); Immature Granulocyte Absolute 0.01 K/mm3 (0.00-0.031); Immature Granulocyte Percent A 0.2 % (0-0.5); Lymphocytes Absolute Auto 1.34 K/mm3 (0.9-3.2); Mean Corpuscular HGB Conc 31.7 g/dl (32-36); Mean Corpuscular Hemoglobin 28.8 pg (26-34); Mean Corpuscular Volume 90.8 fl (80-100); Monocytes Absolute Auto 0.6 K/mm3 (0.1-0.6); Monocytes Percent Auto 10.6 % (2.6-8.5); Neutrophils Absolute Auto 3.4 K/mm3 (1.3-6.7); Neutrophils Percent Auto 60.6 % (45.5-73.1); Platelet Count Result 217 k/mm3 (150-375); Red Blood Count 4.13 M/mm3 (4.2-5.4); Red Cell Distribution Width 12.3 % (11.5-14.5); White Blood Count 5.6 K/mm3 (4.5-10.0)
[2019-09-15 05:23] LABS: Blood Urea Nitrogen 23 mg/dL (7-17); Carbon Dioxide 27 mmol/L (22-30); Chloride 102 mmol/L (98-107); Estimated CRCL calculation 50 ml/min; Estimated Glomerular Filt Rate > 60; Glucose 97 mg/dL (65-105); Sodium 138 mmol/L (137-145)
[2019-09-15] MEDS: NIFEdipine 10 MG CAPSULE 20 MG PO (05:45)
[2019-09-15 06:00] VITALS: BP 134/62; PULSE 55; RESP 16; TEMP 36.3; O2SAT 100
[2019-09-15] MEDS: lisinopriL 20 MG TABLET 40 MG PO (09:07)
[2019-09-15] MEDS: APIXABAN 5 MG TABLET 10 MG PO (09:07)
[2019-09-15 09:08] VITALS: PULSE 55
[2019-09-15] MEDS: ASPIRIN 81 MG CHEWABLE TABLET PO (09:08)
[2019-09-15] MEDS: METOPROLOL SUCCINATE EXT REL 100 MG TABCR PO (09:08)
[2019-09-15] MEDS: hydroCHLOROthiazide 25 MG TABLET PO (09:08)
--- NOTE | 2019-09-19 08:58 | DS_ITS ---
DATE OF DISCHARGE: 09/15/2019 DISCHARGE ACUTE REHAB DIAGNOSIS: Primary rehab impairment category of 01/stroke, etiological diagnosis of acute infarct involving the medial left frontal and parietal lobes. DISCHARGE ACTIVE COMORBID CONDITION: Hypertension. REASON FOR ADMISSION: A 64-year-old right-handed female with history of hypertension, presented to [facility] on 09/03/2019 subsequent to fall the day before and unable to remember falling, but did not become unconscious, felt decreased sensation in the right lower extremity since the fall. She was not taking her regular antihypertensive medication for the last couple of months. Initial CT scan of the head revealed no acute intracranial bleed. Chest x-ray was negative for any acute pulmonary processes. Bilateral hip and pelvic x-rays were negative for bony injuries. Blood pressure on presentation was 270 systolic. She was given IV labetalol and hydralazine and home medications were restarted. Neurology consultation was obtained. MRI of the brain and carotid duplex studies were ordered. Brain MRI demonstrated multiple areas of acute infarct in the medial, left frontal and parietal lobe including the primary motor cortex and tiny foci of the old hemorrhages. Duplex scan of the carotid revealed [id number] plaque and no ulceration. Physical exam revealed right-sided weakness with decreased gross motor control, decreased safety awareness, impaired balance. She was started on atorvastatin, aspirin, and Plavix as well. Blood pressure medications included lisinopril, hydrochlorothiazide, metoprolol, they were continued and adjusted. Procardia was added. She was discharged to rehab on subcu heparin for DVT prophylaxis and therapy was started in the acute care facility and she was transferred to us for further care. The patient had no major surgery in the last 100 days prior to admission, has had falls in the last year. She had no fall injury in the last year. LEVEL OF FUNCTION AT THE TIME OF ADMISSION: The patient required setup for eating, oral hygiene, supervision for toileting, bathing, setup for upper body dressing, partial assistance for lower body dressing, footwear. She was independent for rolling in bed, sit to lying, lying to sitting, required supervision for sit to stand, chair transfer, toilet transfer, car transfer, walking 10 feet, walking 50 feet with 2 turns. She was unable to walk 150 feet. She required supervision for 10 feet walking on uneven surfaces, curb or step, 4 steps, but she was unable to walk 12 steps. She required supervision for picking up object and the wheelchair was not applicable. ANTICIPATED REHAB GOALS: At the time of admission were to make her independent in all the modalities. LEVEL OF FUNCTION AT THE TIME OF DISCHARGE: The patient became independent in all the modalities except that she required supervision for the curb or step, and wheelchair obviously was not applicable. Throughout the hospitalization, she was involved in the physical therapy and occupational therapy actively. There was no other government operations consultant involved. At the time of discharge, she was able to ambulate 10 feet standby, 50 feet with 2 turns standby, 150 feet standby using the cane, and she was able to transfer in and out of chair independently. Her general physical examination remained stable so as the neurological examination and vital signs also remained stable. DISCHARGE INSTRUCTIONS: Included may shower. No driving DISCHARGE MEDICATIONS: Included: 1. Eliquis 10 mg and 5 mg b.i.d. that is total of 15 mg twice a day. 2. Tylenol 650 mg q.6 hours. 3. Aspirin 81 mg daily. 4. Atorvastatin 40 mg at night. 5. Hydrochlorothiazide 25 mg daily. 6. Lisinopril 40 mg daily. 7. Metoprolol 100 mg daily. 8. Nifedipine 20 mg q.8 angie
== END 2019-09-15 15:00 | disposition home or self-care (01) | DRG 57 ==
PROVIDERS: Admitting Provider Psychiatry & Neurology Neurology; PCP Family Medicine; Visit Provider Psychiatry & Neurology Neurology
DX: I69.351 Hemiplegia and hemiparesis following cerebral infarction affecting right dominant side (principal); I82.451 Acute embolism and thrombosis of right peroneal vein; E78.5 Hyperlipidemia, unspecified; I10 Essential (primary) hypertension; M21.371 Foot drop, right foot; Z91.14 Patient's other noncompliance with medication regimen; Z79.01 Long term (current) use of anticoagulants; Z79.82 Long term (current) use of aspirin
CPT/HCPCS: 36415; 80048; 85025; 87081; 92523; 93971; 97110; 97116; 97150; 97161; 97165; 97530; 97535; A9270; J1644